=== PATIENT | male | born 1990 | race Caucasian/White ===

== ENCOUNTER 2021-04-07 13:50 | Outpatient (CLI) | payer OTHER ==
[~2021-04-07 13:50] MED LIST: BACTRIM DS TAB1 EACH PO; CYCLOBENZAPRINE10 MG PO; DICLOFENAC POTA50 MG PO
== END 2021-04-07 14:00 | disposition home or self-care (01) ==
LOC: PPH VACUNA 13:50
PROVIDERS: ATTEND Emergency Medicine Pediatric Emergency Medicine
DX: Z23 Encounter for immunization (principal)

== ENCOUNTER 2021-07-03 16:31 | Emergency (ER) | payer OTHER ==
[~2021-07-03] VITALS: Ht 180.3 cm; Wt 104.3 kg
[2021-07-03] MEDS ORDERED: ZITHROMAX500 MG PO (22:28)
== END 2021-07-03 22:58 ==
LOC: ER 16:31
DX: J06.9 Acute upper respiratory infection, unspecified (principal); Z20.822 Contact with and (suspected) exposure to COVID-19

== ENCOUNTER 2021-08-08 13:21 | Outpatient (CLI) | payer OTHER ==
[~2021-08-08 13:21] MED LIST changes: +ZITHROMAX500 MG PO
== END 2021-08-08 13:30 | disposition home or self-care (01) ==
LOC: RAD 13:21
DX: M99.01 Segmental and somatic dysfunction of cervical region (principal); M99.02 Segmental and somatic dysfunction of thoracic region; M99.03 Segmental and somatic dysfunction of lumbar region